=== PATIENT | male | born 1980 | race Caucasian/White ===

== ENCOUNTER 2020-12-05 18:29 | Emergency (ER) | payer OTHER ==
[~2020-12-05] VITALS: Ht 185.4 cm; Wt 104.3 kg
[~2020-12-05 18:29] MED LIST: IBUPROFEN 800800 MG PO; NORCO 5-325 TA1 EACH PO
[2020-12-05] MEDS ORDERED: IBUPROFEN 800800 M1 PO (19:11)
[2020-12-05] MEDS ORDERED: PENICILLIN V P500 MG PO (19:11)
[2020-12-05] MEDS ORDERED: NORCO5 PO (19:11)
[2020-12-05 19:30] VITALS: BP 149/95
== END 2020-12-05 19:30 | disposition home or self-care (01) ==
LOC: M.ERS 18:29
DX: S02.5XXA Fracture of tooth (traumatic), initial encounter for closed fracture (principal); X58.XXXA Exposure to other specified factors, initial encounter; Y93.89 Activity, other specified; Y92.89 Other specified places as the place of occurrence of the external cause; Y99.8 Other external cause status